=== PATIENT | female | born 1955 | race Caucasian/White ===

== ENCOUNTER 2022-01-02 10:08 | Outpatient (CLI) | payer OTHER, SELFPAY ==
[2022-01-02 11:10] LABS: Thyroid Stim Hormone (TSH) 0.54 uIU/mL (0.358-3.74)
== END 2022-01-02 23:59 | disposition home or self-care (01) ==
LOC: LABSPEC 10:38
PROVIDERS: PCP Student in an Organized Health Care Education/Training Program
DX: C54.1 Malignant neoplasm of endometrium (principal); Z79.899 Other long term (current) drug therapy
CPT/HCPCS: 84443

== ENCOUNTER → 2022-02-13 | Outpatient (CLI) | payer OTHER, SELFPAY ==
[2022-02-13 09:57] LABS: Thyroid Stim Hormone (TSH) 1.04 uIU/mL (0.358-3.74)
[2022-02-14 11:24] LABS: Cancer Antigen 125 27.2 U/mL (0.0-38.1)
== END | disposition home or self-care (01) ==
PROVIDERS: PCP Student in an Organized Health Care Education/Training Program
DX: C54.1 Malignant neoplasm of endometrium (principal); Z79.899 Other long term (current) drug therapy
CPT/HCPCS: 84443; 86304

== ENCOUNTER → 2022-05-15 | Outpatient (CLI) | payer OTHER, SELFPAY ==
[2022-05-15 10:35] LABS: Thyroid Stim Hormone (TSH) 0.62 uIU/mL (0.358-3.74)
== END | disposition home or self-care (01) ==
PROVIDERS: PCP Student in an Organized Health Care Education/Training Program
DX: C57.01 Malignant neoplasm of right fallopian tube (principal); C57.02 Malignant neoplasm of left fallopian tube; E06.4 Drug-induced thyroiditis
CPT/HCPCS: 84443